=== PATIENT | female | born 1995 | race Caucasian/White ===

== ENCOUNTER 2018-04-29 10:20 | Emergency (ER) | payer SELFPAY ==
[~2018-04-29] VITALS: Ht 165.1 cm; Wt 118.4 kg
[2018-04-29 11:05] VITALS: BP 142/72
[2018-04-29] MEDS ORDERED: FLUORESCEIN OPHTH TEST STRIP. OD ONE (11:15)
[2018-04-29] MEDS ORDERED: TETRACAINE 0.5% OPHTH SOLUTION 4ML BOTTLE. OD ONE (11:15)
[2018-04-29] MEDS ORDERED: PROPARACAINE/FLUORESCEIN 0.5 ML OPHTH DROPS. OD ONE (11:15)
[2018-04-29] MEDS ORDERED: AZIT2.5D4 RIGHTEYE (11:51)
--- NOTE | 2018-04-29 13:16 | PHYS DOC ---
Past Medical History Past Medical History: No Pertinent History Past Surgical History: No Surgical History Alcohol Use: None Drug Use: None Adult General Chief Complaint Chief Complaint: EYE PROBLEMS HPI HPI Patient is a 23 year old female presenting the emergency room with a chief complaint of right eye redness pain itching for 10 days she has been on ofloxacin she has been on sulfacetamide 5 days of each with minimal relief. She went to her boyfriend's house here locally on and then he actually got the same thing in the same I he's had it for 2 days and he's tried ofloxacin also with no relief he also checked in at the same time no fever not a contact lens wearer. She at the other antibiotic drops from [facility] and from her friend Current Medications Current Medications Current Medications Medications (Trade) Dose Ordered Sig/Obey Start Time Stop Time Status Last Admin Dose Admin Fluorescein Sodium (Ful-Swathi) 1 strip 1X ONCE 04/29/18 11:15 04/29/18 11:16 UNV Proparacaine HCl/ Fluorescein Sodium (Flucaine Eye Drops) 1 drop 1X ONCE 04/29/18 11:15 04/29/18 11:16 DC 04/29/18 11:36 1 DROP Tetracaine HCl (Tetracaine) 1 drop 1X ONCE 04/29/18 11:15 04/29/18 11:16 UNV Allergies Allergies Allergies Coded Allergies Type Severity Reaction Last Updated Verified No Known Drug Allergies 04/29/18 No Physical Exam Physical Exam Constitutional: Well developed, well nourished, no acute distress, non-toxic appearance. [] HENT: Normocephalic, atraumatic, bilateral external ears normal, oropharynx moist, no oral exudates, nose normal. [] Eyes: Right conjunctiva is injected there is some sawyer-limbic sparing the cornea does not stain there are no dendrites. There does not appear to be any flare visual acuity is 20/70 in the affected eye Neck: Normal range of motion, no tenderness, supple, no stridor. [] Pulmonary: Normal respiratory effort no increased work of breathing no obvious chest wall trauma Extremities: No tenderness, no cyanosis, no clubbing, ROM intact, no edema. [] Neurologic: Alert and oriented X 3, normal motor function, normal sensory function, no focal deficits noted. [] Psychologic: Affect normal, judgement normal, mood normal. [] Current Patient Data Vital Signs Vital Signs Date Time Temp Pulse Resp B/P (MAP) Pulse Ox O2 Delivery O2 Flow Rate FiO2 04/29/18 11:05 98.6 70 16 142/72 (95) 99 Room Air 98.6 EKG EKG [] Radiology/Procedures Radiology/Procedures [] Course & Med Decision Making Course & Med Decision Making Pertinent Labs and Imaging studies reviewed. (See chart for details) []23-year-old female presenting with conjunctiva is of the right eye. It appears to be resistant to 2 different antibiotic drops. Differential would include viral versus bacterial v chlamdyial given intimate partner has same sympoms v. less liekly uveitis really no photophobia. Given the resistance to the antibiotics a try to page ophthalmology we are on hold for 30 minutes with the answering service with no answer. In light of that I have opted to do conjunctival cultures switched to azithromycin drops recommended follow-up here in 2-3 days to recheck the cultures and have additional planning as needed if she does not improve. Dragon Disclaimer Dragon Disclaimer This electronic medical record was generated, in whole or in part, using a voice recognition dictation system. Departure Departure Impression: Primary Impression: Conjunctivitis Disposition: 01 HOME, SELF-CARE Condition: STABLE Referrals: Madeleine VARGHESE MD Patient Instructions: Conjunctivitis (Viral and Bacterial) Scripts Azithromycin (AZASITE) 2.5 Ml Drops 1 DROP RIGHTEYE BID, #1 BOT take 1 drop in affected eye twice daily for 2 days, then 1 drop in affected eye once daily for the next 5 days. Prov: ANAMARIA CASANOVA MD 04/29/18 ANAMARIA CASANOVA MD Apr 29, 2018 13:16
== END 2018-04-29 12:06 | disposition home or self-care (01) ==
LOC: ER 10:20
DX: H10.9 Unspecified conjunctivitis (principal)
CPT/HCPCS: 87071; 87075; 99283